=== PATIENT | male | born 1955 | race Caucasian/White ===

== ENCOUNTER 2017-09-27 05:43 | Observation (INO) | payer MEDICARE, OTHER ==
[~2017-09-27] VITALS: Ht 182.9 cm; Wt 116.0 kg
[2017-09-27] MEDS ORDERED: normal saline 1000ML IV soln IVB STA (05:57)
[2017-09-27] MEDS ORDERED: epiNEPHrine 1 mg/ml inj SQ ONE (06:00)
[2017-09-27] MEDS ORDERED: diphenhydrAMINE 50 mg/ml inj IV ONE (06:00)
[2017-09-27] MEDS ORDERED: methylPREDNISolone sod succ 125mg/2ml vial IV ONE ×2 (06:00→16:00)
[2017-09-27] MEDS ORDERED: famotidine/PF 10 mg/ml inj IV ONE (06:00)
[2017-09-27 08:17] LABS: PROTHROMBIN TIME 10.4 SECONDS (9.0-12.0)
[2017-09-27 08:20] LABS: BASOPHILS # (AUTO) 0.1 X10'3 (0-0.2); BASOPHILS % (AUTO) 1.4 % (0-1); EOSINOPHILS # (AUTO) 0.3 X10'3 (0-0.9); EOSINOPHILS % (AUTO) 2.9 % (0-6); HEMATOCRIT 44.5 % (42.0-52.0); HEMOGLOBIN 15.2 g/dl (14.0-17.9); LYMPHOCYTES # (AUTO) 2.2 X10'3 (1.1-4.8); LYMPHOCYTES % (AUTO) 23.4 % (21-51); MEAN CORPUSCULAR HEMOGLOBIN 30.4 PG (27.0-31.0); MEAN CORPUSCULAR HGB CONC 34.1 % (33.0-36.5); MEAN CORPUSCULAR VOLUME 89.2 FL (78-98); MEAN PLATELET VOLUME 9.4 FL (7.4-10.4); MONOCYTES # (AUTO) 0.6 X10'3 (0-0.9); MONOCYTES % (AUTO) 6.4 % (2-12); NEUTROPHILS # (AUTO) 6.1 X10'3 (1.8-7.7); NEUTROPHILS % (AUTO) 65.9 % (42-75); PLATELET COUNT 313 X10'3 (140-440); RED BLOOD COUNT 4.99 X10'6 (4.70-6.10); RED CELL DISTRIBUTION WIDTH 11.6 % (11.5-14.5); WHITE BLOOD COUNT 9.3 X10'3 (4.5-11.0)
[2017-09-27 08:23] LABS: ALANINE AMINOTRANSFERASE 32 U/L (12-78); ALBUMIN 4.5 G/DL (3.4-5.0); ALBUMIN/GLOBULIN RATIO 1.3 (1.1-1.5); ALKALINE PHOSPHATASE 90 IU/L (46-116); ANION GAP 8 (8-16); ASPARTATE AMINO TRANSFERASE 21 U/L (10-37); BLOOD UREA NITROGEN 27 MG/DL (7-18); BUN/CREATININE RATIO 19.7 (5.4-32.0); CALCIUM 9.7 MG/DL (8.5-10.1); CHLORIDE 98 MMOL/L (99-107); CREATININE 1.37 MG/DL (0.60-1.10); GLUCOSE 189 MG/DL (70-104); POTASSIUM 4.1 MMOL/L (3.5-5.1); SODIUM 133 MMOL/L (135-145); TOTAL CARBON DIOXIDE 26.6 MMOL/L (24-32); TOTAL PROTEIN 8.1 G/DL (6.4-8.2); eGFR 53 ML/MIN
[2017-09-27] MEDS ORDERED: magnesium 4gm in 100ml NS 100 ML IV PRN (09:10)
[2017-09-27] MEDS ORDERED: acetaminophen 325mg tablet PO PRN (09:10)
[2017-09-27] MEDS ORDERED: mag hydrox/Alum hydrox/simeth 30ml oral suspension PO PRN (09:10)
[2017-09-27] MEDS ORDERED: glucagon, human recombinant 1mg kit SUBCUT PRN (09:10)
[2017-09-27] MEDS ORDERED: MESSAGE TO PHARMACY PO ONE (09:10)
[2017-09-27] MEDS ORDERED: potassium Cl 40MEQ/NS 500ml 500 ML IV PRN ×2 (09:10)
[2017-09-27] MEDS ORDERED: magnesium hydroxide 30ml (MOM) UD suspension PO PRN (09:10)
[2017-09-27] MEDS ORDERED: ondansetron/PF 4mg/2ml inj IV PRN (09:10)
[2017-09-27] MEDS ORDERED: dextrose 50%-water 50ml dispensing syringe IV PRN ×2 (09:10)
[2017-09-27] MEDS ORDERED: magnesium 1gm/100ml D5W IVPB 100 ML IV PRN (09:10)
[2017-09-27] MEDS ORDERED: dextrose ORAL solution 15 GM/59 ML bottle PO PRN ×2 (09:10)
[2017-09-27 09:36] VITALS: BP 175/97
[2017-09-27 09:49] LABS: HEMOGLOBIN A1C 7.7 % (4.5-6.2)
[2017-09-27 09:50] VITALS: BP 152/76
[2017-09-27] MEDS ORDERED: METF500T PO (10:22)
[2017-09-27] MEDS ORDERED: ATOR10TA87 PO (10:22)
[2017-09-27] MEDS ORDERED: ASPI81TA52 PO (10:22)
[2017-09-27] MEDS ORDERED: LISI10TA4 PO (10:22)
[2017-09-27] MEDS ORDERED: GLIP10TA11 PO (10:22)
[2017-09-27] MEDS: normal saline 1000ml 1,000 ML IV SCH ×3 (13:32→21:55)
[2017-09-27] MEDS: diphenhydrAMINE 50 mg/ml inj IV SCH ×2 (14:45→21:30)
[2017-09-27 15:01] VITALS: BP 171/93
[2017-09-27] MEDS: ipratropium/albuterol 3ml nebule NEB PRN (15:06)
[2017-09-27] MEDS: dronabinol 2.5mg capsule PO PRN ×2 (15:37→21:45)
[2017-09-27] MEDS: insulin Lispro (HumaLOG) vial - multi-dose SQ SCH ×2 (18:53→22:01)
[2017-09-27 20:00] VITALS: BP 144/75
[2017-09-27] MEDS ORDERED: insulin glargine (Lantus) pen - multi-dose SQ SCH (21:00)
[2017-09-27] MEDS ORDERED: famotidine 20mg tablet PO SCH (21:00)
[2017-09-28] VITALS: BP 118/52
[2017-09-28] MEDS: diphenhydrAMINE 50 mg/ml inj IV SCH ×2 (01:19→07:39)
[2017-09-28 05:01] LABS: BASOPHILS % (AUTO) 0.3 % (0-1); EOSINOPHILS # (AUTO) 0.2 X10'3 (0-0.9); EOSINOPHILS % (AUTO) 1.6 % (0-6); HEMATOCRIT 36.1 % (42.0-52.0); HEMOGLOBIN 12.7 g/dl (14.0-17.9); LYMPHOCYTES # (AUTO) 0.8 X10'3 (1.1-4.8); LYMPHOCYTES % (AUTO) 5.9 % (21-51); MEAN CORPUSCULAR HEMOGLOBIN 31.4 PG (27.0-31.0); MEAN CORPUSCULAR HGB CONC 35.2 % (33.0-36.5); MEAN CORPUSCULAR VOLUME 89.3 FL (78-98); MEAN PLATELET VOLUME 8.9 FL (7.4-10.4); MONOCYTES # (AUTO) 0.4 X10'3 (0-0.9); MONOCYTES % (AUTO) 3.1 % (2-12); NEUTROPHILS # (AUTO) 11.5 X10'3 (1.8-7.7); NEUTROPHILS % (AUTO) 89.1 % (42-75); PLATELET COUNT 280 X10'3 (140-440); RED BLOOD COUNT 4.04 X10'6 (4.70-6.10); RED CELL DISTRIBUTION WIDTH 12.5 % (11.5-14.5); WHITE BLOOD COUNT 12.9 X10'3 (4.5-11.0)
[2017-09-28 05:22] LABS: ALANINE AMINOTRANSFERASE 28 U/L (12-78); ALBUMIN 3.7 G/DL (3.4-5.0); ALBUMIN/GLOBULIN RATIO 1.2 (1.1-1.5); ALKALINE PHOSPHATASE 73 IU/L (46-116); ANION GAP 9 (8-16); ASPARTATE AMINO TRANSFERASE 18 U/L (10-37); BILIRUBIN,TOTAL 0.7 MG/DL (0.1-1.0); BLOOD UREA NITROGEN 28 MG/DL (7-18); BUN/CREATININE RATIO 20.4 (5.4-32.0); CALCIUM 8.8 MG/DL (8.5-10.1); CHLORIDE 103 MMOL/L (99-107); CHOL/HDL RATIO 5.8 (0.00-4.99); CHOLESTEROL 192 MG/DL (0-200); CREATININE 1.37 MG/DL (0.60-1.10); GLUCOSE 304 MG/DL (70-104); HDL CHOLESTEROL 33 MG/DL (35-60); LDL CHOLESTEROL 141 MG/DL (50-100); MAGNESIUM 1.8 MG/DL (1.5-2.4); POTASSIUM 4.2 MMOL/L (3.5-5.1); SODIUM 134 MMOL/L (135-145); TOTAL CARBON DIOXIDE 22.5 MMOL/L (24-32); TOTAL PROTEIN 6.9 G/DL (6.4-8.2); TRIGLYCERIDES 86 MG/DL (20-135); eGFR 53 ML/MIN
[2017-09-28] MEDS: normal saline 1000ml 1,000 ML IV SCH (07:39)
[2017-09-28 07:44] VITALS: BP 138/78
[2017-09-28] MEDS: ipratropium/albuterol 3ml nebule NEB PRN (07:58)
[2017-09-28] MEDS ORDERED: K and/or MAG REPLACEMENT MC SCH (08:00)
[2017-09-28] MEDS ORDERED: enoxaparin 40mg/0.4ml syringe SQ SCH (08:00)
[2017-09-28] MEDS: insulin Lispro (HumaLOG) vial - multi-dose SQ SCH (08:33)
[2017-09-28] MEDS: dronabinol 2.5mg capsule PO PRN (09:36)
[2017-09-28] MEDS ORDERED: EPIN0.3P8 IM (11:00)
[2017-09-28] MEDS ORDERED: ATOR20TA66 PO (11:00)
== END 2017-09-28 12:25 | disposition home or self-care (01) ==
LOC: ER 05:43 → ED HOLD 09:10 → SUR 3N 12:00
PROVIDERS: ADMIT Family Medicine; ATTEND Family Medicine
DX: R22.0 Localized swelling, mass and lump, head (principal); T46.4X5A Adverse effect of angiotensin-converting-enzyme inhibitors, initial encounter; E11.22 Type 2 diabetes mellitus with diabetic chronic kidney disease; E11.65 Type 2 diabetes mellitus with hyperglycemia; N18.9 Chronic kidney disease, unspecified; M50.30 Other cervical disc degeneration, unspecified cervical region; G89.29 Other chronic pain; E78.5 Hyperlipidemia, unspecified; Z87.891 Personal history of nicotine dependence; Z79.82 Long term (current) use of aspirin; Z79.84 Long term (current) use of oral hypoglycemic drugs; Z79.899 Other long term (current) drug therapy; Z98.1 Arthrodesis status; Z82.5 Family history of asthma and other chronic lower respiratory diseases; Y92.89 Other specified places as the place of occurrence of the external cause
CPT/HCPCS: 36415; 36430; 80053; 80061; 82947; 82948; 83036; 83735; 85025; 85610; 86885; 86900; 86901; 87070; 92616; 93005; 94640; 94760; 96372; 96374; 96375; 96376; 99291; G0378; J0171; J1200; J1650; J1815; J2930; J3490; J7030; P9059; Q0167

== ENCOUNTER 2024-01-17 08:51 | Day surgery (SDC) | payer OTHER, MEDICARE ==
[2024-01-12 14:49] LABS: BASOPHILS # (AUTO) 0.1 X10'3 (0-0.2); BASOPHILS % (AUTO) 1.1 % (0-1); EOSINOPHILS # (AUTO) 0.2 X10'3 (0-0.9); EOSINOPHILS % (AUTO) 2.1 % (0-6); LYMPHOCYTES # (AUTO) 2.2 X10'3 (1.1-4.8); LYMPHOCYTES % (AUTO) 21.9 % (21-51); MEAN CORPUSCULAR HEMOGLOBIN 31.9 PG (27.0-31.0); MEAN CORPUSCULAR HGB CONC 34.8 g/dL (33.0-36.5); MEAN CORPUSCULAR VOLUME 91.9 FL (78-98); MEAN PLATELET VOLUME 7.6 FL (7.4-10.4); MONOCYTES # (AUTO) 0.7 X10'3 (0-0.9); MONOCYTES % (AUTO) 6.8 % (2-12); NEUTROPHILS # (AUTO) 6.8 X10'3 (1.8-7.7); NEUTROPHILS % (AUTO) 68.1 % (42-75); PRE OP HEMATOCRIT 49.1 % (42.0-52.0); PRE OP HEMOGLOBIN 17.1 g/dL (14.0-17.9); PRE OP PLATELET COUNT 284 X10'3 (140-440); PRE OP WHITE BLOOD COUNT 9.9 10'3 (4.8-10.8); RED BLOOD COUNT 5.34 X10'6 (4.70-6.10); RED CELL DISTRIBUTION WIDTH 12.9 % (11.5-14.5)
[2024-01-12 15:11] LABS: ALBUMIN 4.1 G/DL (3.4-5.0); ALKALINE PHOSPHATASE 90 IU/L (46-116); BLOOD UREA NITROGEN 22 MG/DL (7-18); BUN/CREATININE RATIO 15.8 (10.0-20.0); CALCIUM 9.3 MG/DL (8.5-10.1); CHLORIDE 102 MMOL/L (99-107); CREATININE 1.39 MG/DL (0.60-1.10); PRE OP ALT 11 U/L (30-65); PRE OP ANION GAP 9 (8-16); PRE OP AST 9 U/L (10-37); PRE OP GLUCOSE 174 MG/DL (70-104); PRE OP POTASSIUM 4.2 MMOL/L (3.4-5.1); PRE OP SODIUM 139 MMOL/L (135-145); TOTAL CARBON DIOXIDE 27.7 MMOL/L (24-32); TOTAL PROTEIN 8.1 G/DL (6.4-8.2); eGFR 51 ML/MIN
[2024-01-17] VITALS (7 sets, daily range): BP systolic 113–182; BP diastolic 64–79; PULSE 65–81; RESP 10–16; TEMP 98.5; O2SAT 94–98
[~2024-01-17] VITALS: Ht 182.9 cm; Wt 118.8 kg
[2024-01-17] MEDS: ceFAZolin 2gm in dextrose, iso 50 ML IV ONE (05:30)
[~2024-01-17 08:51] MED LIST: ATOR10TA87 PO; DOCUMENT DATE & TIME OF BETA-BLOCKER PO ONE; EMPAGLIFLOZIN PO; FLO0.4C PO; GLIM1TAB57 PO; LONG ACTING INSULIN SQ; METO-384 PO; PROAIR INHALER; SILD50TA53 PO; [UNRECOGNIZED DRUG - OTHER] PO
[2024-01-17] MEDS: famotidine 20mg tablet PO ONE (09:46)
[2024-01-17] MEDS: ringers solution, lacted 1,000 ML IV SCH (09:47)
[2024-01-17] MEDS: metoprolol succinate 25mg (24-HOUR) SR. Tablet PO STA (10:09)
[2024-01-17] MEDS ORDERED: BUPIVAcaine/PF 2.5mg/ml (0.25%) 10ml vial ONE (10:24)
[2024-01-17] MEDS ORDERED: fentaNYL/PF 50MCG/1 ML 2ML syringe ONE (10:55)
[2024-01-17] MEDS ORDERED: propofol inj 20 ML IV ONE ×2 (11:12→11:27)
[2024-01-17] MEDS ORDERED: midazolam 1 mg/ML 2ml injection ONE (11:12)
[2024-01-17] MEDS ORDERED: LIDOcaine 0.5% (5mg/ml) 50ml vial ONE (11:27)
[2024-01-17] MEDS ORDERED: hydrALAZINE 20mg/ml inj. IV PRN (11:55)
[2024-01-17] MEDS ORDERED: labetalol 20mg/4ml (5mg/ml) syringe IV PRN (11:55)
[2024-01-17] MEDS ORDERED: ringers solution, lacted 1,000 ML IV SCH (11:55)
[2024-01-17] MEDS ORDERED: morphine 2 MG/ML inj. syringe IV PRN (11:55)
[2024-01-17] MEDS ORDERED: meperidine/PF 25mg/ml syringe IV PRN ×3 (11:55)
[2024-01-17] MEDS ORDERED: ondansetron/PF 4mg/2ml inj IV PRN (11:55)
[2024-01-17] MEDS ORDERED: acetaminophen 1,000mg/100ml IV 100 ML IV ONE (11:55)
[2024-01-17] MEDS ORDERED: morphine 4 MG/ML inj SYRINge IV PRN (11:55)
[2024-01-17] MEDS ORDERED: proCHLORperazine 10 MG/2 ml inj IV PRN (11:55)
[2024-01-17] MEDS: BUPIVAcaine 2.5mg/ml inj 50ml vial (contains preservative) IJ ONE (12:04)
== END 2024-01-17 13:04 | disposition home or self-care (01) ==
LOC: PAS 08:51
PROVIDERS: ATTEND Orthopaedic Surgery Hand Surgery
DX: S56.125A Laceration of flexor muscle, fascia and tendon of right ring finger at forearm level, initial encounter (principal); S56.127A Laceration of flexor muscle, fascia and tendon of right little finger at forearm level, initial encounter; I10 Essential (primary) hypertension; E11.9 Type 2 diabetes mellitus without complications; E78.5 Hyperlipidemia, unspecified; K21.9 Gastro-esophageal reflux disease without esophagitis; F41.9 Anxiety disorder, unspecified; G47.33 Obstructive sleep apnea (adult) (pediatric); Z87.891 Personal history of nicotine dependence; Z79.4 Long term (current) use of insulin; Z79.84 Long term (current) use of oral hypoglycemic drugs; Z79.899 Other long term (current) drug therapy; Z98.890 Other specified postprocedural states; Z88.8 Allergy status to other drugs, medicaments and biological substances; X58.XXXA Exposure to other specified factors, initial encounter; Y93.89 Activity, other specified; Y92.89 Other specified places as the place of occurrence of the external cause; Y99.8 Other external cause status
CPT/HCPCS: 26356; 36415; 80053; 82948; 85025; 93005; J0690; J2250; J2704; J3010; J3490; J7030; J7120; Z7506; Z7508; Z7512; A4215; A4618; A6449; A7000